=== PATIENT | male | born 2000 | race African-American/Black ===

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

== ENCOUNTER 2020-03-05 12:50 | Emergency (ER) | payer MEDICAID, OTHER ==
[~2020-03-05] VITALS: Ht 172.7 cm; Wt 62.6 kg
[2020-03-05 13:14] VITALS: BP 113/51
[2020-03-05] MEDS ORDERED: IBUPROFEN 800 MG TAB PO ONE (14:45)
== END 2020-03-05 15:41 | disposition home or self-care (01) ==
LOC: ER 12:50
DX: S52.502A Unspecified fracture of the lower end of left radius, initial encounter for closed fracture (principal); L03.114 Cellulitis of left upper limb; V00.131A Fall from skateboard, initial encounter; Y93.51 Activity, roller skating (inline) and skateboarding; Y92.89 Other specified places as the place of occurrence of the external cause; Y99.8 Other external cause status
CPT/HCPCS: 29125; 73110